=== PATIENT | female | born 1960 | race African-American/Black ===

== ENCOUNTER 2017-01-22 20:29 | Emergency (ER) | payer OTHER ==
[~2017-01-22] VITALS: Ht 165.1 cm; Wt 67.8 kg
[~2017-01-22 20:29] MED LIST: LIND1LOT7 TOP; TRIA.1%T TOP; Z.0.NO CURRENT MEDS
[2017-01-22 20:42] VITALS: BP 181/85; PULSE 101; RESP 14; TEMP 98.8; O2SAT 98
--- NOTE | 2017-01-22 21:04 | PD ---
HPI Chief Complaint: right toe injury. Time Seen by Provider: 21:01 Travel History International Travel<30 days: No Contact w/Intl Traveler<30days: No History of Present Illness HPI 56-year-old Afro-English female presents the emergency department status post recent injury. Patient states she was going in the room at [facility], when she stubbed her right great toe. This occurred last night approximately 10 PM. Patient works nights at the [employer]. Patient went home and slept but now has increased pain and difficulty ambulating with swelling and redness to the right great toe. There is no obvious deformity. Pain is currently an 8 out of 10. Patient has no history of gout. She has no known drug allergies. [facility] Social History Alcohol Use: No Tobacco Use: No Allergies-Medications (Allergen,Severity, Reaction): Coded Allergies: No Known Allergies (Unverified , 01/22/17) Reported Meds & Prescriptions Reported Meds & Active Scripts Active No Active Prescriptions or Reported Medications Review of Systems Except as stated in HPI: all other systems reviewed are Neg General / Constitutional: No: Fever Eyes: No: Visual changes HENT: No: Headaches Cardiovascular: No: Chest Pain or Discomfort Respiratory: No: Shortness of Breath Gastrointestinal: No: Abdominal Pain Genitourinary: No: Dysuria Musculoskeletal: Positive: Arthralgias, Limited ROM, Pain (see history of present illness) Skin: No Rash Neurologic: No: Weakness Psychiatric: No: Depression Endocrine: No: Polydipsia Hematologic/Lymphatic: No: Easy Bruising Physical Exam Narrative GENERAL: Patient appears in mild distress SKIN: Warm and dry. Normal color. Normal turgor. There is no abrasions or open wounds. There is erythema and swelling at the base of the right great toe. HEAD: Atraumatic. Normocephalic. EYES: Pupils equal and round. No scleral icterus. No injection or drainage. ENT: No nasal bleeding or discharge. Mucous membranes pink and moist. NECK: Trachea midline. Supple and nontender. CARDIOVASCULAR: Regular rate and rhythm. No murmurs gallops or rubs. RESPIRATORY: No accessory muscle use. Clear to auscultation. Breath sounds equal bilaterally. MUSCULOSKELETAL: Extremities without clubbing, cyanosis, or edema. No obvious deformities. Patient has swelling and tenderness at the base of the first phalanx of the right foot. Patient has increased pain with motion. No obvious deformity. Capillary refill is brisk. Neuro exam is normal. NEUROLOGICAL: Awake and alert. No obvious cranial nerve deficits. Motor grossly within normal limits. Five out of 5 muscle strength in the arms and legs. Normal speech. PSYCHIATRIC: Appropriate mood and affect; insight and judgment normal. Data Data Last Documented VS Vital Signs Date Time Temp Pulse Resp B/P Pulse Ox O2 Delivery O2 Flow Rate FiO2 01/22/17 21:16 01/22/17 20:42 98.8 101 14 98 Orders Foot, Complete ([id number]) (01/22/17 20:59) Ice/Cold Pack (01/22/17 20:59) Splint Or Brace Apply/Monitor (01/22/17 21:32) [facility] Medical Decision Making Medical Screen Exam Complete: Yes Emergency Medical Condition: Yes Differential Diagnosis Workplace injury. Right toe contusion. Possible right toe fracture. Narrative Course Patient is medically stable at time of exam. X-ray of the right great toe was ordered. Patient does not request any pain medication at this time. X-ray shows nondisplaced fracture the proximal first phalanx of the right foot. Patient is placed in a postop shoe. Patient is use frequent ice and elevation. Patient can take Tylenol and ibuprofen as needed. Patient is put on work restrictions of limited walking or standing. Patient follow with employee med for further evaluation and treatment and referral to podiatry as needed. Diagnosis Primary Impression: Accident at workplace Additional Impression: Toe fracture, right Qualified Code: S92.414A - Closed nondisplaced fracture of proximal phalanx of right great toe, initial encounter Referrals: Employ Med call for appointment Patient Instructions: General Instructions, Toe Fracture (ED) Additional Instructions: X-ray shows nondisplaced fracture the proximal first phalanx of the right foot. Patient is placed in a postop shoe. Patient is use frequent ice and elevation. Patient can take Tylenol and ibuprofen as needed. Patient is put on work restrictions of limited walking or standing. Patient follow with employee med for further evaluation and treatment and referral to podiatry as needed. Med/Other Pt SpecificInfo: Prescription(s) given Scripts No Active Prescriptions or Reported Meds Disposition: 01 DISCHARGE HOME Condition: Stable Ned Aguayo Jan 22, 2017 21:04
[2017-01-22] MEDS ORDERED: IBUP-232 PO (21:39)
[2017-01-22] MEDS ORDERED: NON-500T13 PO (21:39)
--- NOTE | 2017-01-22 22:11 | RADRPT ---
EXAM DATE/TIME: 01/22/2017 21:03 [facility] COMPARISON: No previous studies available for comparison. INDICATIONS : Right great toe pain. MEDICAL HISTORY : None. SURGICAL HISTORY : None. ENCOUNTER: Initial ACUITY: 1 day PAIN SCORE: 5/10 LOCATION: Right foot, great toe. FINDINGS: Three-view examination of the foot was performed. On the oblique view, there is a longitudinal lucen cy through the medial metaphysis of the proximal phalanx which may represent a nondisplaced intra-art icular fracture. The distal mariya are intact. No radiopaque foreign bodies. The metatarsal bones a re intact. CONCLUSION: Possible intra-articular fracture of the proximal phalanx 1st digit involving the medial epiphysis. James Beaver MD on January 22, 2017 at 22:08 Board Certified Radiologist. This report was verified electronically.
== END 2017-01-22 21:58 | disposition home or self-care (01) ==
LOC: PHEFT 20:29
DX: S92.414A Nondisplaced fracture of proximal phalanx of right great toe, initial encounter for closed fracture (principal); W22.8XXA Striking against or struck by other objects, initial encounter; Y92.238 Other place in hospital as the place of occurrence of the external cause; Y99.0 Civilian activity done for income or pay
CPT/HCPCS: 73630; 99283; E0113; L3260

== ENCOUNTER 2017-02-19 07:57 | Emergency (ER) | payer OTHER ==
[~2017-02-19] VITALS: Ht 165.1 cm; Wt 67.2 kg
[~2017-02-19 07:57] MED LIST changes: +IBUP-232 PO; -LIND1LOT7 TOP; +NON-500T13 PO; -TRIA.1%T TOP; -Z.0.NO CURRENT MEDS
[2017-02-19 08:05] VITALS: BP 192/99; PULSE 102; RESP 17; TEMP 98.4; O2SAT 99
[2017-02-19] MEDS ORDERED: IBUPROFEN 600 MG TAB PO ONE (08:30)
--- NOTE | 2017-02-19 08:37 | PD ---
HPI Chief Complaint: Injury Time Seen by Provider: 08:30 Travel History International Travel<30 days: No Contact w/Intl Traveler<30days: No Traveled to known affect area: No History of Present Illness HPI patient is a 56-year-old female presents emergency department for evaluation of right foot swelling. Patient states that she broke her right great toe a month ago on the job. [place] and she is yet to follow up with an orthopedic surgeon because she has not gotten a referral yet. Patient states that over the past 2- 3 days she's noted some increasing swelling over the dorsum of her foot as well as some pain. She states the toe was feeling much better and nearly healed. 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 Denies recurrent injury. PFSH Past Medical History Diminished Hearing: No Hypertension: Yes Immunizations Current: Yes Tetanus Vaccination: > 5 Years Influenza Vaccination: Yes ?: Not Menopausal: Yes Tubal Ligation: Yes Past Surgical History Cholecystectomy: Yes Other Surgery: Yes (fx toe rt great) Social History Alcohol Use: Yes (Occ.) Tobacco Use: No Substance Use: No Allergies-Medications (Allergen,Severity, Reaction): Coded Allergies: No Known Allergies (Unverified , 02/19/17) Reported Meds & Prescriptions Reported Meds & Active Scripts Active No Active Prescriptions or Reported Medications Review of Systems Except as stated in HPI: all other systems reviewed are Neg Physical Exam Narrative GENERAL: Well-nourished, well-developed patient. SKIN: Focused skin assessment warm/dry. HEAD: Normocephalic. EYES: No scleral icterus. No injection or drainage. NECK: Supple, trachea midline. No JVD or lymphadenopathy. CARDIOVASCULAR: Regular rate and rhythm without murmurs, gallops, or rubs. RESPIRATORY: Breath sounds equal bilaterally. No accessory muscle use. GASTROINTESTINAL: Abdomen soft, non-tender, nondistended. MUSCULOSKELETAL: No cyanosis, there is minimal edema over the dorsum of foot, no edema over the calf, no edema over the ankle. Minimal tenderness to the dorsum of the foot over the metatarsals. Full nontender range of motion of all the digits. No tenderness in the toe. BACK: Nontender without obvious deformity. No CVA tenderness. Data Data Last Documented VS Vital Signs Date Time Temp Pulse Resp B/P (MAP) Pulse Ox O2 Delivery O2 Flow Rate FiO2 02/19/17 09:35 02/19/17 08:05 98.4 102 17 99 Orders Orders Ibuprofen (Motrin) (02/19/17 08:30) Foot, Complete ([id number]) (02/19/17 ) MDM Medical Decision Making Medical Screen Exam Complete: Yes Emergency Medical Condition: Yes Differential Diagnosis Muscle strain, pedal edema, DVT extremely unlikely, toe fracture. Narrative Course Patient roomed emergency department, there really is a minimal amount of edema on the dorsum of her foot. Bone is now nontender. X-rays were obtained and showed no new fracture and a healing fracture of the great toe as specified: Last 24 hours Impressions Foot X-Ray 02/19/17 0000 Signed Impressions: Service Date/Time: Sunday, February 19, 2017 08:34 - CONCLUSION: Old fracture great toe otherwise negative. Jorge Hidalgo MD FACR Discussed with the patient to add Reyes wrap and continuing hard sole shoe. Discussed need for follow-up with orthopedic surgeon and at this point she was referred to our case management who is attempting to place her into an orthopedic office sooner. Discussed symptomatic management home and returned ED criteria. Diagnosis Primary Impression: Toe fracture, right Qualified Codes: S92.414D - Nondisplaced fracture of proximal phalanx of right great toe, subsequent encounter for fracture with routine healing Patient Instructions: General Instructions, RICE Therapy (GEN) Departure Forms: Tests/Procedures, Work Release Enter return to work date: Feb 20, 2017 Scripts No Active Prescriptions or Reported Meds Disposition: 01 DISCHARGE HOME Condition: Stable Ori Laurent MD Feb 19, 2017 08:37
--- NOTE | 2017-02-19 09:14 | RADRPT ---
EXAM DATE/TIME: 02/19/2017 08:34 [facility] COMPARISON: FOOT RIGHT COMPLETE ([id number]), January 22, 2017, 21:03. INDICATIONS : Swelling in right foot for two days. MEDICAL HISTORY : Right toe fracture SURGICAL HISTORY : None. ENCOUNTER: Initial ACUITY: 2 days PAIN SCORE: 6/10 LOCATION: Right lateral Foot FINDINGS: Three view examination of the right foot demonstrates no soft tissue swelling, dislocation, or fractu re. The tarsal bones appear intact. The interphalangeal and metatarsophalangeal joints are intact. Minimal plantar spurring is evident. The calcaneus is intact. Bony mineralization is normal. CONCLUSION: Old fracture great toe otherwise negative. Jorge Hidalgo MD FACR on February 19, 2017 at 9:12 Board Certified Radiologist. This report was verified electronically.
== END 2017-02-19 09:40 | disposition home or self-care (01) ==
LOC: PHED 07:57
DX: S92.414D Nondisplaced fracture of proximal phalanx of right great toe, subsequent encounter for fracture with routine healing (principal); X58.XXXD Exposure to other specified factors, subsequent encounter
CPT/HCPCS: 73630; 99283

== ENCOUNTER 2017-11-12 11:23 | Emergency (ER) | payer OTHER ==
[~2017-11-12] VITALS: Ht 165.1 cm; Wt 61.9 kg
[2017-11-12 11:27] VITALS: BP 202/97; PULSE 98; RESP 18; TEMP 98.3; O2SAT 97
[2017-11-12] MEDS ORDERED: IBUPROFEN 600 MG TAB PO ONE (12:00)
--- NOTE | 2017-11-12 12:12 | PD ---
HPI Chief Complaint: Fall Time Seen by Provider: 11:48 Travel History International Travel<30 days: No Contact w/Intl Traveler<30days: No Traveled to known affect area: No History of Present Illness HPI 57y female presents to the ED for evaluation of right facial and right hand pain after a fall that occurred just prior to arrival. Says she was walking her dog when he pulled and she tripped, fell, landing on her cheek and hand. Says her pain is mild to moderate in severity. Worse with movement. Her hand pain is located on the 5th MCP region. She has difficulty flexing her 5th finger because of the pain. Denies numbness or tingling. Denies pain with movement of her jaw. Denies LOC or blurred vision. Denies neck or back pain. She has no other complaints today. PFSH Past Medical History Diminished Hearing: No Hypertension: Yes Immunizations Current: Yes Tetanus Vaccination: > 5 Years Influenza Vaccination: Yes ?: Not Menopausal: Yes Tubal Ligation: Yes Past Surgical History Cholecystectomy: Yes Other Surgery: Yes (fx toe rt great) Social History Alcohol Use: Yes (Occ.) Tobacco Use: No Substance Use: No Allergies-Medications (Allergen,Severity, Reaction): Coded Allergies: No Known Allergies (Unverified Adverse Reaction, Unknown, 11/12/17) Reported Meds & Prescriptions Reported Meds & Active Scripts Active Hydrocodone-Acetaminophen 5-325 mg Tab 1 Tab PO Q6H PRN 3 Days Review of Systems Except as stated in HPI: all other systems reviewed are Neg Physical Exam Narrative GENERAL: Well-nourished, well-developed patient, in NAD SKIN: Focused skin assessment warm/dry. No rashes or lesions. HEAD: Normocephalic. Right cheek with a large contusion, skin intact. EYES: No scleral icterus. No injection or drainage. PERRLA, EOMI THROAT: No pharyngeal injection, exudates, or tonsillar hypertrophy. Airway is patent. No tenderness with opening and closing of the jaw, full range of motion. NECK: Supple, trachea midline. No JVD or lymphadenopathy. No meningismus. No midline tenderness CARDIOVASCULAR: Regular rate and rhythm without murmurs, gallops, or rubs. RESPIRATORY: Breath sounds equal bilaterally. No accessory muscle use. No wheezes, rales, or rhonchi MUSCULOSKELETAL: No cyanosis, or edema. Right hand-skin tear to the ulnar aspect of the hyperthenar prominence, bleeding controlled, tenderness palpation of the fifth MCP, no crepitus noted BACK: Nontender without obvious deformity. No CVA tenderness. Data Data Last Documented VS Vital Signs Date Time Temp Pulse Resp B/P (MAP) Pulse Ox O2 Delivery O2 Flow Rate FiO2 11/12/17 15:21 83 18 190/100 (130) 98 11/12/17 11:45 Room Air 11/12/17 11:[address] Brain W/O Iv Contrast(Rout) (11/12/17 ) Ct Facial Bones W/O Iv Cont (11/12/17 ) Ibuprofen (Motrin) (11/12/17 12:00) Hand, Complete ([id number]) (11/12/17 ) Wound Care (11/12/17 11:51) Tetanus/Diphtheria Tox Adult (Tetanus/Di (11/12/17 12:15) Support Splint (11/12/17 13:05) Fiberglass Splint Forearm Adul (11/12/17 ) Ed Discharge Order (11/12/17 15:18) MDM Medical Decision Making Medical Screen Exam Complete: Yes Emergency Medical Condition: Yes Differential Diagnosis Right hand contusion, bursitis, cellulitis, fracture, osteonecrosis, avascular necrosis, sprain, strain Narrative Course 57y female presents to the ED for evaluation of right facial and right hand pain after a fall that occurred just prior to arrival. Says she was walking her dog when he pulled and she tripped, fell, landing on her cheek and hand. Says he pain is mild to moderate in severity. Worse with movement. Denies numbness or tingling. Denies pain with movement of her jaw. Denies LOC or blurred vision. She has no other complaints today. Vital signs stable. Physical exam findings demonstrate a skin tear of the ulnar aspect of 5th metacarpal with TTP over 5th MTP. Right cheek with contusion, skin intact. No TTP of neck or back. Wound care for hand. Ulnar gutter splint for hand fracture. Ibuprofen for pain. Tetanus administered for the skin tear as she does not remember her last vaccine. She is advised to follow up with a hand specialist for evaluation of the hand fracture. She should perform wound care of the hand in 2-3 days by removing the splint if she does not see the hand specialist first. Hydrocodone for pain control at home. Diagnosis Primary Impression: Skin tear Additional Impressions: Hand fracture, right Qualified Codes: S62.91XA - Unspecified fracture of right wrist and hand, initial encounter for closed fracture Facial contusion Qualified Codes: S00.83XA - Contusion of other part of head, initial encounter Referrals: Lyn Garnica MD Hand Surgeon Additional Instructions: Use ice or heat for symptom relief. If no contraindications, you may use Tylenol or Motrin per package instructions for your pain. Elevate the joint above the heart to reduce swelling. You may use compression with Reyes wrap or similar to reduce swelling. If symptoms persist or worsen, return to the emergency department. Follow up with your primary care physician within 2 days. Follow-up with a hand specialist within 1 week. You may remove her splint in 2-3 days if you are unable to see the hand specialist by then for wound care. Scripts Hydrocodone-Acetaminophen (Hydrocodone-Acetaminophen) 5-325 mg Tab 1 TAB PO Q6H Y for PAIN for 3 Days, #12 TAB 0 Refills Prov: Araceli Garcia 11/12/17 Disposition: 01 DISCHARGE HOME Condition: Stable Kenisha Perkins November 12, 2017 12:12
[2017-11-12] MEDS ORDERED: TETANUS/DIPHTHERIA TOXOID ADULT 0.5 ML VIAL IM ONE (12:15)
--- NOTE | 2017-11-12 12:37 | RADRPT ---
EXAM DATE/TIME: 11/12/2017 12:22 [facility] COMPARISON: No previous studies available for comparison. INDICATIONS : Right medial hand pain and lacerations, pulled down while walking dog. MEDICAL HISTORY : None. SURGICAL HISTORY : None. ENCOUNTER: Initial ACUITY: 1 day PAIN SCORE: 5/10 LOCATION: Right medial hand FINDINGS: Three view examination of the right hand demonstrates regional air density adjacent to the fifth MCP joint. In addition, there appears to be a nondisplaced avulsion type fracture off the ulnar base of t he proximal phalanx of the fifth ray. Remaining osseous structures are intact CONCLUSION: Plain film findings characteristic of a small soft tissue laceration and associated nondisplaced avulsion off the ulnar base of the proximal phalanx of the fifth digit. Kevin Castanon MD on November 12, 2017 at 12:32 Board Certified Radiologist. This report was verified electronically.
--- NOTE | 2017-11-12 15:10 | RADRPT ---
EXAM DATE/TIME: 11/12/2017 13:22 [facility] COMPARISON: No previous studies available for comparison. INDICATIONS : Tripped while walking dog. Right facial pain and swelling. RADIATION DOSE: 52.06 CTDIvol (mGy) MEDICAL HISTORY : Hypertension. SURGICAL HISTORY : Cholecystectomy. Tubal ligation. ENCOUNTER: Initial ACUITY: 1 day PAIN SCALE: 4/10 LOCATION: Right cranial TECHNIQUE: Multiple contiguous axial images were obtained of the head. Using automated exposure control and adj ustment of the mA and/or kV according to patient size, radiation dose was kept as low as reasonably a chievable to obtain optimal diagnostic quality images. DICOM format image data is available electro nically for review and comparison. FINDINGS: CEREBRUM: The ventricles are normal for age. No evidence of midline shift, mass lesion, hemorrhage or acute in farction. No extra-axial fluid collections are seen. POSTERIOR FOSSA: The cerebellum and brainstem are intact. The 4th ventricle is midline. The cerebellopontine angle i s unremarkable. EXTRACRANIAL: The visualized portion of the orbits is intact. SKULL: The calvaria is intact. No evidence of skull fracture. CONCLUSION: Negative exam. Kevin Castanon MD on November 12, 2017 at 15:07 Board Certified Radiologist. This report was verified electronically.
--- NOTE | 2017-11-12 15:12 | RADRPT ---
EXAM DATE/TIME: 11/12/2017 13:22 [facility] COMPARISON: No previous studies available for comparison. INDICATIONS : Tripped while walking dog. Right facial pain and swelling. RADIATION DOSE: 25.69 CTDIvol (mGy) MEDICAL HISTORY : Hypertension. SURGICAL HISTORY : Cholecystectomy. Tubal ligation. ENCOUNTER: Initial ACUITY: 1 day PAIN SCORE: 4/10 LOCATION: Right facial TECHNIQUE: Volumetric scanning of the facial bones was performed. Using automated exposure control and adjustme nt of the mA and/or kV according to patient size, radiation dose was kept as low as reasonably achiev able to obtain optimal diagnostic quality images. DICOM format image data is available electronicall y for review and comparison. FINDINGS: ORBITS: The orbital and infraorbital osseous structures are intact. The retroconal structures have a normal configuration. No radiopaque foreign bodies are seen. NASAL BONE: The nasal bone and maxillary spine are intact ZYGOMATIC ARCHES: Symmetric without evidence of fracture. SINUSES: The maxillary, ethmoid and frontal sinuses are intact. No air-fluid levels seen. NASAL CAVITY: The nasal septum is intact and midline. The lacrimal ducts are intact. SOFT TISSUES: Soft tissue swelling over the right cheek/anterior zygomatic arch. No radiopaque foreign body. INTRACRANIAL: No intracranial air seen. CRIBIFORM PLATE: Grossly intact. CONCLUSION: 1. Soft tissue swelling over the right cheek/anterior zygomatic arch. 2. No fracture or radiopaque foreign body. Kevin Castanon MD on November 12, 2017 at 15:08 Board Certified Radiologist. This report was verified electronically.
[2017-11-12 15:21] VITALS: BP 190/100
[2017-11-12] MEDS ORDERED: HYDR-3516 PO (15:22)
== END 2017-11-12 15:29 | disposition home or self-care (01) ==
LOC: PHEFT 11:23
DX: S52.601A Unspecified fracture of lower end of right ulna, initial encounter for closed fracture (principal); S00.83XA Contusion of other part of head, initial encounter; I10 Essential (primary) hypertension; W01.0XXA Fall on same level from slipping, tripping and stumbling without subsequent striking against object, initial encounter; Y93.K1 Activity, walking an animal; Z23 Encounter for immunization
CPT/HCPCS: 29125; 70450; 70486; 73130; 90471; 90714